=== PATIENT | female | born 1960 | race Caucasian/White ===

== ENCOUNTER 2023-09-17 04:02 | Emergency (ER) | payer MEDICARE, OTHER ==
[~2023-09-17] VITALS: Ht 162.6 cm; Wt 75.0 kg
[2023-09-17 04:24] VITALS: TEMP 98
[2023-09-17] MEDS: BACITRACIN 0.9 GM PACKET OINTMENT TP ONE (04:43)
[2023-09-17 04:47] LABS: BASOPHILS % (AUTO) 0.7 % (0.0-2.0); EOSINOPHILS % (AUTO) 3.3 % (1.0-6.0); HEMATOCRIT 30.8 % (36-46); HEMOGLOBIN 9.9 g/dL (12.0-16.0); LYMPHOCYTES # (AUTO) 0.9 K/uL (1.0-4.8); MEAN CORPUSCULAR HEMOGLOBIN 27.7 pg (26.0-34.0); MEAN CORPUSCULAR VOLUME 86 fL (80-100); MONOCYTES # (AUTO) 0.5 K/uL (0.1-1.0); MONOCYTES % (AUTO) 7.7 % (2.0-9.0); NEUTROPHILS # (AUTO) 4.6 K/uL (1.8-7.7); NEUTROPHILS % (AUTO) 73.3 % (40.0-70.0); PLATELET COUNT (AUTO) 329 K/uL (150-450); RED BLOOD CELL COUNT(AUTO) 3.56 MIL/uL (4.00-5.20); RED CELL DISTRIBUTION WIDTH 14.3 % (11.5-14.5); WHITE BLOOD COUNT (AUTO) 6.3 K/uL (4.5-11.0)
[2023-09-17 04:52] LABS: COVID AG,FIA SOURCE NASAL SWAB
[2023-09-17 04:55] LABS: ANION GAP 10 mmol/L (8-16); CALCIUM, TOTAL 9.2 mg/dL (8.8-10.5); CARBON DIOXIDE 26 mmol/L (22-29); CHLORIDE 102 mmol/L (98-107); CREATININE 1.47 mg/dL (0.60-1.30); GLOMERULAR FILTR. RATE CALC 36 mL/min (>60); GLUCOSE,RANDOM 109 mg/dL (70-110); POTASSIUM 3.5 mmol/L (3.5-5.1); SODIUM SERUM 138 mmol/L (136-145); UREA NITROGEN, BLOOD 14 mg/dL (7-18)
[2023-09-17 05:00] LABS: ALCOHOL, BLOOD (SERUM) < 3 mg/dL (0-10)
[2023-09-17 05:01] LABS: ALANINE AMINOTRANSFERASE 20 U/L (12-78); ALBUMIN 3.6 g/dL (3.4-5.0); ALKALINE PHOSPHATASE 109 U/L (46-116); ASPARTATE AMINOTRANSFERASE 21 U/L (15-37); BILIRUBIN,TOTAL 0.3 mg/dL (0.1-1.0); TOTAL PROTEIN, SERUM 6.9 g/dL (6.4-8.2)
[2023-09-17 05:13] LABS: SARS-COV2 (COVID) ANTIGEN,FIA Negative (Negative)
[2023-09-17] MEDS: LORazepam 2 MG/ML VIAL IM ONE (05:13)
[2023-09-17 07:31] VITALS: BP 150/69; PULSE 89; RESP 16
[2023-09-17] MEDS: DiphenhydrAMINE HCL 50 MG/ML VIAL IM ONE (07:50)
[2023-09-17] MEDS: HALOPERIDOL LACTATE 5 MG/ML VIAL IM ONE (07:50)
== END 2023-09-17 08:31 | disposition short-term general hospital (02) ==
LOC: EMS 04:04
DX: S80.811A Abrasion, right lower leg, initial encounter (principal); S80.812A Abrasion, left lower leg, initial encounter; F32.9 Major depressive disorder, single episode, unspecified; Z20.822 Contact with and (suspected) exposure to COVID-19; W17.89XA Other fall from one level to another, initial encounter; Y93.89 Activity, other specified; Y92.89 Other specified places as the place of occurrence of the external cause; Y99.8 Other external cause status
CPT/HCPCS: 99285; 87426; 80053; 85025; 36415; 96372; G0480; J1200; J1630; J2060

== ENCOUNTER 2024-05-27 11:45 | Emergency (ER) | payer OTHER ==
[~2024-05-27] VITALS: Ht 162.6 cm; Wt 65.9 kg
[2024-05-27] MEDS ORDERED: ZOLPIDEM TARTRATE 10 MG TABLET PO PRN (13:15)
[2024-05-27] MEDS: HALOPERIDOL 5 MG TABLET PO PRN (13:35)
[2024-05-27] MEDS: LORazepam 2 MG TABLET PO PRN (13:35)
[2024-05-27 13:40] VITALS: TEMP 98.4
[2024-05-27 14:07] LABS: COVID AG,FIA SOURCE NASAL SWAB
[2024-05-27 14:30] LABS: SARS-COV2 (COVID) ANTIGEN,FIA Negative (Negative)
[2024-05-27] MEDS ORDERED: PROCHLORPERAZINE MALEATE 5 MG TABLET PO ONE (14:45)
[2024-05-27 15:17] LABS: BASOPHILS % (AUTO) 0.2 % (0.0-2.0); EOSINOPHILS % (AUTO) 0.8 % (1.0-6.0); HEMATOCRIT 28.8 % (36-46); HEMOGLOBIN 8.9 g/dL (12.0-16.0); LYMPHOCYTES # (AUTO) 1.7 K/uL (1.0-4.8); LYMPHOCYTES % (AUTO) 33.9 % (22.0-44.0); MEAN CORPUSCULAR HEMOGLOBIN 21.5 pg (26.0-34.0); MEAN CORPUSCULAR HGB CONC 30.9 G/dL (31.0-37.0); MEAN CORPUSCULAR VOLUME 70 fL (80-100); MONOCYTES # (AUTO) 0.4 K/uL (0.1-1.0); NEUTROPHILS % (AUTO) 58.1 % (40.0-70.0); PLATELET COUNT (AUTO) 379 K/uL (150-450); RED BLOOD CELL COUNT(AUTO) 4.15 MIL/uL (4.00-5.20); RED CELL DISTRIBUTION WIDTH 19.7 % (11.5-14.5); WHITE BLOOD COUNT (AUTO) 5.2 K/uL (4.5-11.0)
[2024-05-27 15:26] LABS: ANION GAP 12 mmol/L (8-16); CALCIUM, TOTAL 8.8 mg/dL (8.8-10.5); CARBON DIOXIDE 22 mmol/L (22-29); CHLORIDE 103 mmol/L (98-107); CREATININE 1.16 mg/dL (0.60-1.30); GLOMERULAR FILTR. RATE CALC 47 mL/min (>60); GLUCOSE,RANDOM 98 mg/dL (70-110); POTASSIUM 4.2 mmol/L (3.5-5.1); SODIUM SERUM 137 mmol/L (136-145); UREA NITROGEN, BLOOD 16 mg/dL (7-18)
[2024-05-27 15:36] LABS: ACETAMINOPHEN 3 mcg/mL (10-30)
[2024-05-27 15:39] LABS: ALCOHOL, BLOOD (SERUM) < 3 mg/dL (0-10)
[2024-05-27 15:55] LABS: RBC MORPHOLOGY COMMENT ABNORMAL RBC MORPH
[2024-05-27 15:59] LABS: SALICYLATE 0.7 mg/dL (2.8-20.0)
[2024-05-27] MEDS: LORazepam 2 MG TABLET PO ONE (16:07)
[2024-05-27] MEDS: PROCHLORPERAZINE MALEATE 10 MG TABLET PO ONE (16:08)
[2024-05-27] MEDS: DiphenhydrAMINE HCL 25 MG CAPSULE PO ONE (16:08)
[2024-05-27 16:12] LABS: APPEARANCE,URINE CLEAR (CLEAR); BILIRUBIN,URINE NEGATIVE (NEGATIVE); COLOR,URINE LIGHT YELLOW (YELLOW); GLUCOSE, URINE (UA) NEGATIVE (NEGATIVE); KETONES,URINE NEGATIVE (NEGATIVE); LEUKOCYTE ESTERASE ,URINE MODERATE (NEGATIVE); NITRATE,URINE NEGATIVE (NEGATIVE); OCCULT BLOOD,URINE NEGATIVE (NEGATIVE); PH,URINE 5.5 (5.0-8.0); PROTEIN,URINE NEGATIVE (NEGATIVE); SPECIFIC GRAVITIY, URINE 1.011 (1.003-1.030); UROBILINOGEN,URINE <=1.0 mg/dL (<=1.0)
[2024-05-27 16:23] LABS: AMPHET/METH SCREEN,URINE NEGATIVE (NEGATIVE); BARBITURATE SCREEN, URINE NEGATIVE (NEGATIVE); BENZODIAZEPINES SCREEN,URINE NEGATIVE (NEGATIVE); CANNABINOID SCREEN,URINE NEGATIVE (NEGATIVE); COCAINE SCREEN,URINE POSITIVE (NEGATIVE); METHADONE SCREEN, URINE NEGATIVE (NEGATIVE); OPIATE SCREEN,URINE NEGATIVE (NEGATIVE); PHENCYCLIDINE SCREEN,URINE NEGATIVE (NEGATIVE)
[2024-05-27 16:24] LABS: ALCOHOL, URINE DRUG SCREEN NEGATIVE (NEGATIVE)
[2024-05-27 16:25] LABS: PH,URINE DRUG SCREEN 5.5 (5.0-8.0)
[2024-05-27 16:29] LABS: RBC,URINE 0-2 /HPF (0-2)
[2024-05-27 16:30] LABS: BACTERIA,URINE Few /HPF (None Seen); SQUAMOUS EPITHELIAL CELL,UR Rare /LPF (None Seen)
[2024-05-27] MEDS: KETOROLAC TROMETHAMINE 30 MG/ML VIAL IM ONE (16:58)
[2024-05-27] MEDS: ACETAMINOPHEN 325 MG TABLET PO ONE (17:06)
[2024-05-27] MEDS: LORazepam 2 MG/ML VIAL IM ONE (18:20)
[2024-05-27] MEDS: DiphenhydrAMINE HCL 50 MG/ML VIAL IM ONE (18:20)
[2024-05-27] MEDS: HALOPERIDOL LACTATE 5 MG/ML VIAL IM ONE (18:20)
[2024-05-27] MEDS: ChlorproMAZINE HCL 50 MG/2 ML AMP IM ONE (20:27)
[2024-05-27 23:36] VITALS: BP 123/93; PULSE 93; RESP 16; O2SAT 98
== END 2024-05-28 00:13 ==
LOC: EMS 11:45
DX: R45.851 Suicidal ideations (principal); F32.9 Major depressive disorder, single episode, unspecified; G43.909 Migraine, unspecified, not intractable, without status migrainosus; I12.9 Hypertensive chronic kidney disease with stage 1 through stage 4 chronic kidney disease, or unspecified chronic kidney disease; N18.9 Chronic kidney disease, unspecified; D64.9 Anemia, unspecified; Z88.6 Allergy status to analgesic agent; Z20.822 Contact with and (suspected) exposure to COVID-19
CPT/HCPCS: 99291; 87426; 80048; 81001; 85025; 87086; 36415; 93005; 96372; 80307; G0480; J3230; J1200; J1630; J1885; J2060; G0481